=== PATIENT | female | born 1945 | race Caucasian/White ===

== ENCOUNTER → 2019-09-12 | Outpatient (CLI) | payer OTHER, MEDICARE ==
[~2019-09-12] MED LIST: ASA81BEC PO; ASPIR 8181 MG PO; ATROVENT HFA14 GM INH; AUGMENTIN 875-1 EACH PO; BRILINTA90 MG PO; CARDIZEM CD120 MG PO; CARVEDILOL25 MG PO; COLACE100 MG PO; ELIQUIS5 MG PO; FLECAINIDE ACET50 M2 PO; FLONASE 0.05%50 MCG NASAL; HYZAAR 100-12.1 EACH PO; LEVAQUIN 750 M750 MG PO; LOPRESSOR50 MG PO; LOSARTAN-HCTZ1 EAC2 PO; MEDROLDOSEPACK PO; METOPROLOL SUC100 MG PO; NON-ASPIRIN325 MG PO; NORCO 5-325 TA1 EACH PO; NOVOLIN N100 UNIT/1 SUBQ; POTASSIUM99 MG PO; PROAIR HFA8.5 GM INH; PROTONIX40 M4 PO; SPIRONOLACTONE25 MG PO; SUPER THERAVIT1 EACH PO; TESSALON PERLE100 M1 PO; TESSALON PERLE100 MG PO; TOPROL XL100 MG PO; TOPROL XL50 MG PO; VERAPAMIL E.R240 M1 PO; VERAPAMIL ER100 MG PO; VERAPAMIL ER120 MG PO; VITAMIN D32000 UNI1 PO; ZETIA10 MG PO
== END ==
LOC: SJCVC 13:56
DX: I48.0 Paroxysmal atrial fibrillation (principal); I48.3 Typical atrial flutter; I25.10 Atherosclerotic heart disease of native coronary artery without angina pectoris; J43.9 Emphysema, unspecified; I50.31 Acute diastolic (congestive) heart failure; Z79.82 Long term (current) use of aspirin; Z79.899 Other long term (current) drug therapy